=== PATIENT | male | born 1950 | race Caucasian/White ===

== ENCOUNTER 2018-09-19 10:55 | Day surgery (SDC) | payer OTHER, MEDICAID ==
--- NOTE | 2018-09-19 11:03 | PDHPUP ---
History & Physical Update H&P update statement: This history and physical update is based on an assessment of the patient which was completed after admission or registration (within 24 hours), but prior to the surgery/procedure. H&P update: H&P reviewed & patient examined, no change in patient's condition since H&P completed
[2018-09-19] MEDS ORDERED: LR 1,000 ML IV ONE (11:07)
[2018-09-19] MEDS ORDERED: LIDOCAINE 1% 2 ML INJ ID PRN (11:07)
[2018-09-19] MEDS ORDERED: BUPIVACAINE 0.5% 30 ML SDV ONE (11:15)
[2018-09-19] MEDS ORDERED: POLYMYXIN B SULFATE 500,000 UNIT/10 ML SYR IRR ONE (11:16)
[2018-09-19] MEDS ORDERED: BUPIVACAINE/EPI 0.25% 30 ML SDV ONE (11:16)
[2018-09-19] MEDS ORDERED: BACITRACIN 50,000 UNITS/10 ML SYR IRR ONE (11:16)
--- NOTE | 2018-09-19 11:49 | PDANEPAE ---
ANE History of Present Illness amputation of R first and second toes. ANE Past Medical History - Cardiovascular History Hx Hypertension: Yes Hx Arrhythmias: No Hx Chest Pain: No Hx Coronary Artery / Peripheral Vascular Disease: Yes Hx CHF / Valvular Disease: No Hx Palpitations: No Cardiovascular History Comment: htn. hyperlipidemia. mi 09/17/2011. cad with stent x1. 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 multiple sclerosis, wheelchair for ambulation - Endocrine History Hx Diabetes: Yes Hypothyroid: No Hyperthyroid: No Obesity: no Endocrine History Comment: type 2 - Renal History Hx Renal Disorders: Yes Renal History Comment: suprapubic cath. chronic UTI's. prostate ca - Liver History Hx Hepatic Disorders: No - Neurological & Psychiatric Hx Hx Neurological and Psychiatric Disorders: No - Cancer History Hx Cancer: Yes Cancer History Comment: prostate ca- cyber knife - Congenital Disorder History Hx Congenital Disorders: No - GI History GERD: mild Hx Gastrointestinal Disorders: Yes Gastrointestinal History Comment: reflux- on medication - Other Health History Other Health History: wears glasses. upper partial plate, doesn't wear. toe wounds currently - Chronic Pain History Chronic Pain: No - Surgical History Prior Surgeries: appy as child. suprapubic cath surgery x2. back surgeries x3 ANE Review of Systems Review of Systems: - Exercise capacity METS (RN): 1 METS ANE Patient History - Allergies Allergies/Adverse Reactions: codeine Allergy (Verified 09/19/18 11:35) Itching latex Allergy (Verified 09/19/18 11:35) Rash tramadol Allergy (Verified 09/19/18 11:35) Itching - Home Medications Home Medications: Atorvastatin Calcium HS 09/18/18 [Last Taken Unknown] Baclofen HS 09/18/18 [Last Taken Unknown] Eliquis BID 09/18/18 [Last Taken 09/18/18] Gentamicin Sulfate 09/18/18 [Last Taken Unknown] Lasix 09/18/18 [Last Taken 09/18/18] Lisinopril 09/18/18 [Last Taken Unknown] Metoprolol Succinate 09/18/18 [Last Taken Unknown] Mirabegron 09/18/18 [Last Taken Unknown] Novolin N 16 units SQ 09/18/18 [Last Taken 09/19/18 09:00] Potassium Citrate 09/18/18 [Last Taken 09/19/18 09:00] Ranitidine HCl 09/18/18 [Last Taken 09/18/18 22:00] Tylenol PRN 09/18/18 [Last Taken 09/17/18] Valium HS 09/18/18 [Last Taken 09/18/18 22:00] - Anes Hx Anes Hx: no prior problems - Smoking Hx Smoking Status: Heavy smoker Marijuana use: Yes - Alcohol Use Alcohol Use: None - Family Anes Hx Family Anes Hx: none Family Hx Anesthesia Complications: none ANE Labs/Vital Signs - Labs Result Diagrams: 09/19/18 11:28 - Vital Signs Blood Pressure: 137/78 Heart Rate: 76 O2 Sat (%): 97 Height: 182.88 cm Weight: 92.986 kg ANE Physical Exam - Airway Neck exam: FROM Mallampati Score: Class 2 Mouth exam: normal dental/mouth exam - Pulmonary Pulmonary: clear to auscultation - Cardiovascular Cardiovascular: regular rate and rhythym - ASA Status ASA Status: III ANE Anesthesia Plan Anesthesia Plan: GA with mask
[2018-09-19] MEDS ORDERED: PROPOFOL 200 MG/20 ML VIAL ONE ×2 (12:01→12:25)
[2018-09-19] MEDS ORDERED: MIDAZOLAM 2 MG/2 ML VIAL ONE (12:02)
[2018-09-19] MEDS ORDERED: ONDANSETRON 4 MG/2 ML VIAL IVP PRN (13:20)
[2018-09-19] MEDS ORDERED: fentaNYL 100 MCG/2 ML INJ IVP PRN (13:20)
[2018-09-19] MEDS ORDERED: NALOXONE HCL 0.4 MG/ML INJ IVP PRN (13:20)
[2018-09-19] MEDS ORDERED: ceFAZolin 2 GM/DEXTROSE 100 ML IV ONE (13:39)
--- NOTE | 2018-09-19 13:39 | POSTOPPROG ---
Post Op Note Date of Operation: 09/19/18 Surgeon: Matt Hunter [employer] Manager: none Anesthesiologist: margie Anesthesia: IV Sedation Pre-op Diagnosis: osteomyelitis right hallux and second digit Post-op Diagnosis: same Indication: osteomyelitis Procedure: amputation right hallux and second digit Findings: infection Inf/Abcess present in the surg proc area at time of surgery?: Yes Depth: Deep Incisional (Fascial) EBL: Minimal Total fluids administered: 20cc 9/1 .25% marcaine plain and with epi Complications: none Drains: Other (none)
--- NOTE | 2018-09-19 14:42 | GOP ---
DATE OF OPERATION: 09/19/2018 SURGEON: Matt Hunter DPM BLASTING CLAY MINER: None. ANESTHESIA: Local with MAC. ANESTHESIOLOGIST: Himanshu Field MD. PREOPERATIVE DIAGNOSIS: 1. Osteomyelitis, right hallux. 2. Osteomyelitis, right distal interphalangeal joint. POSTOPERATIVE DIAGNOSIS: 1. Osteomyelitis, right hallux. 2. Osteomyelitis, right distal interphalangeal joint. PROCEDURE PERFORMED: 1. Amputation right hallux. 2. Amputation right 2nd digit. FINDINGS: SPECIMENS: Soft tissue and bone specimen sent for culture and sensitivity and pathological evaluatio n. ESTIMATED BLOOD LOSS: Minimal. DESCRIPTION OF PROCEDURE: The patient presented to [facility] and was cleared for the intended procedure. Patient was taken to the operating room and placed on the table in supine positi on. IV sedation was started per the anesthesia department. Foot was anesthetized in an infiltrative nerve block fashion. Foot was prepped, scrubbed, and draped in usual sterile fashion. Following ex sanguination by elevation and Esmarch bandage, pneumatic ankle tourniquet was inflated to 225 mmHg. At this time, attention was directed to the dorsal aspect of the right hallux at the level of the janell lux interphalangeal joint. A transverse incision was made across this area and carried to the medial and lateral sides of the hallux. The incision was then carried distally around the tip inferior to the ulceration that had previously been shown to probe directly to the distal phalanx. The incisions were carried deep, utilizing sharp blunt dissection, making sure that all neurovascular structures w ere identified and retracted. At this time, all superficial bleeders were cauterized. The incision was carried down to the level of the joint capsule. At this time, a capsulotomy was performed and th e distal phalanx was then dissected free and removed. It was sent in for pathological evaluation of the proximal margin for signs of osteomyelitis. The area was then flushed with copious amounts of st erile saline. Deep tissue was closed with 5-0 Vicryl, followed by skin closure with 5-0 nylon. Upon completion of this, attention was redirected to the 2nd digit where C-arm fluoroscopy showed obvious destruction of the distal interphalangeal joint. It was decided that disarticulation at the proxima l interphalangeal joint would be performed. At this time, a transverse incision was made at the leve l of the proximal interphalangeal joint to get into the medial and lateral aspects of the digit. Thi s was carried distally approximately 1 cm before being carried from medial to lateral on the plantar surface of the toe. The incisions were carried deep utilizing sharp and blunt dissection, making ermias e that all neurovascular structures were identified and retracted. At this time, all superficial ble eders were cauterized. The incisions were carried down to the level of the joint capsule. Again, th e capsulotomy of the proximal interphalangeal joint was performed and the distal portion of the toe w as disarticulated and removed. The intermediate phalanx showed such erosion that I decided that I wo uld take a little more of the head of the proximal phalanx to be sent in for pathological evaluation. A sagittal saw was utilized to perform the osteotomy and the head was dissected free and removed. It was sent in for pathological evaluation. The distal portion of the toe was sent in for culture an d sensitivity at this time. Upon completion of this, the area was again flushed with copious amounts of sterile saline and antibiotic rinse. The deep tissue was again closed with 5-0 Vicryl, followed by skin closure with 5-0 nylon. Both areas were dressed with Betadine-soaked Adaptics, 4x4s, Kerlix, and Coban. The patient was taken to the recovery room with vital signs stable, vascular supply inta ct to the remaining digits 1 through 5 after the pneumatic ankle tourniquet had been released for a t otal tourniquet time of 51 minutes. HEMOSTASIS: PAT at 250 mmHg by 51 minutes. MATERIALS: None. INJECTABLES: 20 cc 9:1 ratio of 0.25% Marcaine plain, 0.25% Marcaine with epinephrine preoperatively . COMPLICATIONS: None. /[id number]/MODL
[2018-09-19 15:13] VITALS: BP 161/74
--- NOTE | 2018-09-19 15:22 | POSTANESTH ---
Post Anesthetic Evaluation Cardiovascular Status: Similar to Pre-Op Cond Respiratory Status: Similar to Pre-op Cond. Level of Consciousness/Mental Status: Can Participate in Eval Pain Control: Adequate, Prn Tx Ordered Nausea/Vomiting Control: Adequate, Prn Tx Ordered Complications Possibly Related to Anesthesia: None Noted
--- NOTE | 2018-09-20 15:25 | CPEKG ---
Test Reason : OPEN Blood Pressure : / mmHG Vent. Rate : 069 BPM Atrial Rate : 069 BPM P-R Int : 193 ms QRS Dur : 100 ms QT Int : 419 ms P-R-T Axes : 082 093 078 degrees QTc Int : 449 ms Sinus rhythm Right axis deviation Confirmed by Matt Walker ([id number]) on 09/20/2018 3:25:15 PM Referred By: Confirmed By:Matt Walker
== END 2018-09-19 15:12 | disposition home or self-care (01) ==
LOC: FSGY 10:55
PROVIDERS: ATTEND Podiatrist Primary Podiatric Medicine
DX: M86.071 Acute hematogenous osteomyelitis, right ankle and foot (principal); L97.504 Non-pressure chronic ulcer of other part of unspecified foot with necrosis of bone; F17.200 Nicotine dependence, unspecified, uncomplicated; G35 Multiple sclerosis; E11.9 Type 2 diabetes mellitus without complications; I10 Essential (primary) hypertension; E78.5 Hyperlipidemia, unspecified; I25.2 Old myocardial infarction; I25.10 Atherosclerotic heart disease of native coronary artery without angina pectoris; Z79.4 Long term (current) use of insulin; Z87.440 Personal history of urinary (tract) infections; Z85.46 Personal history of malignant neoplasm of prostate; Z86.73 Personal history of transient ischemic attack (TIA), and cerebral infarction without residual deficits; Z95.5 Presence of coronary angioplasty implant and graft; Z98.1 Arthrodesis status; Z99.3 Dependence on wheelchair
CPT/HCPCS: J0690; J2250; J2704

== ENCOUNTER 2018-11-14 06:44 | Day surgery (SDC) | payer OTHER, MEDICAID ==
[2018-11-14] MEDS ORDERED: LR 1,000 ML IV ONE (07:37)
[2018-11-14] MEDS ORDERED: BUPIVACAINE 0.25% 30 ML SDV ONE (07:38)
[2018-11-14] MEDS ORDERED: POLYMYXIN B SULFATE 500,000 UNIT/10 ML SYR IRR ONE (07:39)
[2018-11-14] MEDS ORDERED: BACITRACIN 50,000 UNITS/10 ML SYR IRR ONE (07:39)
[2018-11-14] MEDS ORDERED: ceFAZolin 2 GM/DEXTROSE 100 ML IV ONE (07:47)
--- NOTE | 2018-11-14 07:57 | PDANEPAE ---
ANE History of Present Illness recurrent 2nd osteomyelitis ANE Past Medical History - Cardiovascular History Hx Hypertension: Yes Hx Arrhythmias: No Hx Chest Pain: No Hx Coronary Artery / Peripheral Vascular Disease: Yes Hx CHF / Valvular Disease: No Hx Palpitations: No Cardiovascular History Comment: htn. hyperlipidemia. mi 09/17/2011. cad with stent x1. 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 multiple sclerosis, wheelchair - Endocrine History Hx Diabetes: Yes Hypothyroid: No Hyperthyroid: No Endocrine History Comment: IDDM type 2 - Renal History Hx Renal Disorders: No Renal History Comment: suprapubic cath. chronic UTI's - Liver History Hx Hepatic Disorders: No - Neurological & Psychiatric Hx Hx Neurological and Psychiatric Disorders: No Neurological / Psychiatric History Comment: MS. N/T TO BOTH FEET AND HANDS. NEUROPATHY TO FEET - Cancer History Hx Cancer: Yes Cancer History Comment: prostate ca- cyber knife - Congenital Disorder History Hx Congenital Disorders: No - GI History Hx Gastrointestinal Disorders: Yes Gastrointestinal History Comment: reflux- on medication - Other Health History Other Health History: wears glasses. upper partial plate, doesn't wear. toe wounds currently - Chronic Pain History Chronic Pain: Yes (BILAT HIPS LOWER BACK) - Surgical History Prior Surgeries: appy as child. suprapubic cath surgery x2. back surgeries x3. foot sx 09/19/18 ANE Review of Systems Review of systems is: negative Review of Systems: - Exercise capacity Exercise capacity: <4 METS METS (RN): 1 METS ANE Patient History - Allergies Allergies/Adverse Reactions: codeine Allergy (Verified 11/14/18 07:04) Itching Gadolinium-Containing Contrast Medi Allergy (Verified 11/14/18 07:04) latex Allergy (Verified 11/14/18 07:04) Rash tramadol Allergy (Verified 11/14/18 07:04) Itching - Home Medications Home Medications: Atorvastatin Calcium 09/18/18 [Last Taken Unknown] Baclofen 09/18/18 [Last Taken Unknown] Eliquis 09/18/18 [Last Taken 09/18/18] Lasix 09/18/18 [Last Taken 09/18/18] Lisinopril 09/18/18 [Last Taken Unknown] Metoprolol Succinate 09/18/18 [Last Taken 09/18/18] Mirabegron 09/18/18 [Last Taken Unknown] Novolin N 09/18/18 [Last Taken 09/19/18 09:00] Potassium Citrate 09/18/18 [Last Taken 09/19/18 09:00] Ranitidine HCl 09/18/18 [Last Taken 09/18/18 22:00] Tylenol 09/18/18 [Last Taken 09/17/18] Valium 09/18/18 [Last Taken 09/18/18 22:00] Doxycycline Monohydrate 11/12/18 [Last Taken Unknown] Sertraline HCl 11/12/18 [Last Taken Unknown] - NPO status NPO Status: no food or drink >8 hours NPO Since - Liquids (Date): 11/14/18 NPO Since - Liquids (Time): 06:30 NPO Since - Solids (Date): 11/13/18 NPO Since - Solids (Time): 19:00 - Anes Hx Anes Hx: no prior problems - Smoking Hx Smoking Status: Heavy smoker - Alcohol Use Alcohol Use: None - Family Anes Hx Family Anes Hx: none Family Hx Anesthesia Complications: none ANE Labs/Vital Signs - Labs Result Diagrams: 11/14/18 07:20 - Vital Signs Blood Pressure: 134/80 Heart Rate: 66 Respiratory Rate: 16 O2 Sat (%): 96 Height: 203.2 cm Weight: 92.986 kg ANE Physical Exam - Airway Neck exam: FROM Mallampati Score: Class 2 Mouth exam: normal dental/mouth exam - Pulmonary Pulmonary: no respiratory distress - Cardiovascular Cardiovascular: regular rate and rhythym - ASA Status ASA Status: III ANE Anesthesia Plan Anesthesia Plan: MAC
[2018-11-14] MEDS ORDERED: MIDAZOLAM 2 MG/2 ML VIAL IVP ONE (08:04)
--- NOTE | 2018-11-14 08:08 | CPEKG ---
Test Reason : OPEN Blood Pressure : / mmHG Vent. Rate : 064 BPM Atrial Rate : 064 BPM P-R Int : 207 ms QRS Dur : 100 ms QT Int : 439 ms P-R-T Axes : 058 086 085 degrees QTc Int : 453 ms Sinus rhythm Borderline right axis deviation Low voltage, precordial leads Confirmed by Nicolas Boyle ([id number]) on 11/14/2018 8:07:50 AM Referred By: GALA BASHIR Confirmed By:Nicolas Boyle
[2018-11-14] MEDS ORDERED: LIDOCAINE 2% 5 ML SDV ONE (08:15)
[2018-11-14] MEDS ORDERED: PROPOFOL/EMULSION 500 MG/50 ML BOTTLE IV ONE (08:15)
[2018-11-14] MEDS ORDERED: PHENYLEPHRINE HCL 100 MCG/ML SYR ONE (09:00)
--- NOTE | 2018-11-14 09:26 | POSTOPPROG ---
Post Op Note Date of Operation: 11/14/18 Surgeon: Matt Hunter Windows Desktop Engineer: none Anesthesiologist: fred Anesthesia: IV Sedation Pre-op Diagnosis: osteomyelitis right 2nd toe and ulcer right 1st Post-op Diagnosis: same Indication: infection Procedure: partial amputation right 2nd digit Findings: none Inf/Abcess present in the surg proc area at time of surgery?: Yes Depth: Deep Incisional (Fascial) EBL: Minimal Total fluids administered: 10cc .25% marcaine plain pre-op Complications: none Drains: Other (none)
[2018-11-14] MEDS ORDERED: HYDROCODONE/APAP 5/325 TAB PO PRN (09:34)
[2018-11-14] MEDS ORDERED: fentaNYL 100 MCG/2 ML INJ IVP PRN (09:34)
[2018-11-14] MEDS ORDERED: ONDANSETRON 4 MG/2 ML VIAL IVP PRN (09:34)
[2018-11-14] MEDS ORDERED: NALOXONE HCL 0.4 MG/ML INJ IVP PRN (09:34)
--- NOTE | 2018-11-14 09:34 | POSTANESTH ---
Post Anesthetic Evaluation Cardiovascular Status: Normal, Stable Respiratory Status: Normal, Stable Level of Consciousness/Mental Status: Can Participate in Eval Pain Control: Adequate, Prn Tx Ordered Nausea/Vomiting Control: Adequate, Prn Tx Ordered Complications Possibly Related to Anesthesia: None Noted
[2018-11-14 11:03] VITALS: BP 135/86
--- NOTE | 2018-11-15 03:42 | GOP ---
[f rep st] OPERATIVE REPORT DATE OF OPERATION: 11/14/2018 SURGEON: Matt Hunter DPM AUTOMOBILE RACER: None. ANESTHESIA: Local with MAC. ANESTHESIOLOGIST: Gerber Cornejo MD. PREOPERATIVE DIAGNOSIS: 1. Osteomyelitis, right second digit. 2. Ulceration, right hallux. POSTOPERATIVE DIAGNOSIS: 1. Osteomyelitis, right second digit. 2. Ulceration, right hallux. PROCEDURE PERFORMED: 1. Partial amputation, right second digit. 2. Debridement, ulceration, right hallux. 3. Primary closure, right hallux ulceration. FINDINGS: SPECIMENS: Bone specimen sent for culture and sensitivity and pathological evaluation. ESTIMATED BLOOD LOSS: Minimal. DESCRIPTION OF PROCEDURE: Patient presented to [facility] and was cleared for the inte nded procedure. Patient was taken to the operating room and placed on the table in supine position. IV sedation was started per the Anesthesia Department. Foot was anesthetized in infiltrative nerve block fashion. Foot was prepped, scrubbed, and draped in the usual sterile fashion. Following exsan guination by elevation and Esmarch bandage, pneumatic ankle tourniquet was inflated to 250 mmHg. At this time, attention was directed to the obvious ulceration on the right second digit. Debridement o f this area was performed. Upon completion of this, the area was probed directly to the proximal pha lanx. It was decided that amputation of this site would be necessary. Dissection was carried down t o the level of the proximal phalanx. There was no evidence of any purulent drainage or any necrotic tissue at the site. The sagittal saw was then utilized to cut the proximal phalanx, and the distal p iece was then removed and sent in for culture and sensitivity. Another piece approximately 3 mm in w idth was then taken from the remaining proximal phalanx and again cut with the sagittal saw. This pi bryan was then sent in for pathological evaluation of osteomyelitis. Upon completion of this, the area was rinsed with sterile saline and antibiotics in a pulse lavage fashion with 3 L. Upon completion of that, no necrotic tissue was identified, and the deep tissue was closed with 3-0 Vicryl followed b y skin closure with 5-0 nylon. Attention was then redirected to the previous amputation site of the hallux. C-arm fluoroscopy of th e area showed no evidence of any erosion of the proximal phalanx, though there was still an ulceratio n noted on the medial aspect of the incision. This area was thoroughly debrided and afterwards clean ed with sterile saline and antibiotic rinse. It was decided that primary closure would be obtained w ith 5-0 nylon. Upon completion of this, both areas were dressed with Betadine-soaked Adaptics, 4 x 4 's, Dayanna, and Coban. Patient was taken to recovery room, vital signs stable, vascular supply intact to the remaining digits. HEMOSTASIS: PAT at 250 mmHg by 38 minutes. MATERIALS: None. INJECTABLES: 10 cc 0.25% Marcaine plain preoperatively. COMPLICATIONS: None. /[id number]/MODL
== END 2018-11-14 11:27 | disposition home or self-care (01) ==
LOC: FSGY 06:44
PROVIDERS: ATTEND Podiatrist Primary Podiatric Medicine
DX: L97.514 Non-pressure chronic ulcer of other part of right foot with necrosis of bone (principal); E11.621 Type 2 diabetes mellitus with foot ulcer; Z79.4 Long term (current) use of insulin; Z85.46 Personal history of malignant neoplasm of prostate; Z87.440 Personal history of urinary (tract) infections; Z89.421 Acquired absence of other right toe(s)
CPT/HCPCS: J0690; J2250; J2370; J2704